=== PATIENT | female | born 1985 | race Caucasian/White ===

== ENCOUNTER 2020-03-28 10:08 | Emergency (ER) | payer OTHER, SELFPAY ==
[2020-03-28 10:15] VITALS: BP 122/82; PULSE 84; RESP 20; TEMP 36.3; O2SAT 99
--- NOTE | 2020-03-28 10:31 | ED.SKABFB ---
HPI - Skin/Abscess/Foreign Bdy General Chief complaint: Skin/Abscess/Foreign Body Stated complaint: rash on arms Time Seen by Provider: 03/28/20 10:31 Source: patient Mode of arrival: ambulatory Limitations: no limitations History of Present Illness HPI narrative: Estephanie Levin is a34 yo female with no PMH who comes to express care with poison randell that started a 3 days ago that is gotten much worse. Paretic with vesicles and scabs on arms beginning on legs. Had a case of poison randell 2 weeks ago also Related Data Allergies Allergy/AdvReac Type Severity Reaction Status Date / Time No Known Allergies Allergy Verified 03/28/20 10:23 Review of Systems Review of Systems: Narrative: CONSTITUTIONAL: Denies fever, chills, sweats. EYES: Denies visual changes, redness, discharge. ENT: Denies rhinorrhea, congestion, sore throat, otalgia. CARDIOVASCULAR: Denies chest pain, palpitations, edema. RESPIRATORY: Denies dyspnea, wheezing, cough GASTROINTESTINAL: Denies abdominal pain, nausea, vomiting, diarrhea. GENITOURINARY: Denies dysuria, hematuria, abnormal discharge SKIN: Pruritic rash to arms and beginning on legs NEUROLOGIC: Denies numbness, or focal weakness. PSYCHIATRIC: Denies anxiety or depression. PMFSH Family History Family History Other Diabetes mellitus Social History Social History Smoking packs per day: 0.5 Smoking cigarettes per day: 10.0 Smoking status: Current every day smoker Alcohol intake: current Gender identity (if verbalized by the patient): Female Comments At time of signature, I agree with nursing past medical, surgical, social and family history. There is no relevant family history pertinent to the presenting complaint. Exam Narrative: Exam Narrative: GENERAL: This is a well-nourished, well-developed patient, in mild distress. HEAD: normocephalic, atraumatic. EYES: Sclera clear/white. Vision is grossly intact. EARS: External ears normal. Hearing grossly intact. NOSE: External nose normal without nasal discharge, nares without redness, no rhinorrhea. THROAT: Mucous membranes moist, NECK: Neck supple, CARDIOVASCULAR: Regular rate and rhythm without murmurs, gallops, or rubs. RESPIRATORY: Clear to auscultation. Breath sounds equal bilaterally. No wheezes, rales, or rhonchi. GASTROINTESTINAL: Abdomen soft, non-tender, SKIN: warm, intact with pruretic papular rash on arms, starting on legs- 2 scabbed places (1 on each forearm) NEURO: awake, alert, and oriented to person, place and time. There were no obvious focal neurologic abnormalities. Steady gait EXTREMITIES: Normal range of motion. BACK: Nontender without deformity Course Course Emergency Course: Started on Medrol Dosepak and Benadryl; discussed cleaning clothes and pools and shoes to get rid of oils; Vital Signs Vital signs: Vital Signs Temperature 97.3 F L 03/28/20 10:15 Pulse Rate 84 03/28/20 10:15 Respiratory Rate 20 03/28/20 10:15 Blood Pressure 122/82 03/28/20 10:15 Pulse Oximetry 99 03/28/20 10:15 Temperature 97.3 F L 03/28/20 10:15 Pulse Rate 84 03/28/20 10:15 Respiratory Rate 03/28/20 10:15 Blood Pressure 122/82 03/28/20 10:15 Pulse Oximetry 99 03/28/20 10:15 MDM - Skin/Abscess/Foreign Bdy Differential Diagnosis Differential diagnosis: Likely urticaria, eczema, impetigo, contact dermatitis and other Discharge Plan Discharge Clinical Impression: Contact dermatitis Qualifiers: Contact dermatitis type: allergic Contact dermatitis trigger: non-food plants Qualified Code(s): L23.7 - Allergic contact dermatitis due to plants, except food Patient Disposition: Home, Self-Care Condition: Stable Instructions: Contact Dermatitis (DC) Prescriptions: New methylprednisolone [Medrol (Sarath)] 4 mg tablets,dose pack See Rx Instructions .ROUTE .COMPLEX Qty: 21 RF
== END 2020-03-28 10:55 | disposition home or self-care (01) ==
PROVIDERS: Emergency Provider Nurse Practitioner
DX: L23.7 Allergic contact dermatitis due to plants, except food (principal); F17.210 Nicotine dependence, cigarettes, uncomplicated
CPT/HCPCS: 99213; G0463

== ENCOUNTER 2021-02-13 10:10 | Emergency (ER) | payer OTHER, SELFPAY ==
--- NOTE | 2021-02-13 10:12 | ED.DENTAL ---
HPI - Dental/Oral General Chief complaint: Dental/Oral Stated complaint: tooth pain Time Seen by Provider: 02/13/21 10:22 Source: patient and RN notes reviewed History of Present Illness HPI Narrative: Patient is a 35-year-old female who presents the urgent care with complaints of acute on chronic dental pain. Patient states that it started last night but she has chronic history of dental pain and swelling. Patient states she is having a hard time finding an oral surgeon due to her insurance. Patient states that she has been taking naproxen and ibuprofen without much improvement. Denies of any fever, chills, nausea, vomiting. No other acute complaints. No acute distress noted. Patient aware of the plan of care. Some parts of this dictation were generated by voice recognition software and may contain typographical and/or grammatical inaccuracies. Related Data Allergies Allergy/AdvReac Type Severity Reaction Status Date / Time No Known Allergies Allergy Verified 03/28/20 10:23 Review of Systems Review of Systems: Narrative: CONSTITUTIONAL: Denies fever, chills, or sweats. EYES: Denies visual changes, redness, or discharge. ENT: Denies rhinorrhea, congestion, sore throat, or otalgia. Reports of right upper and lower dental pain and swelling CARDIOVASCULAR: Denies chest pain, palpitations, or edema. RESPIRATORY: Denies cough or dyspnea. GASTROINTESTINAL: Denies abdominal pain, nausea, vomiting, or diarrhea. GENITOURINARY: Denies dysuria or hematuria. SKIN: Denies rash or itching. MUSCULOSKELETAL: Denies back pain, joint pain, or myalgia. NEUROLOGIC: Denies headache, numbness, or weakness. All other systems reviewed are negative, except as documented in HPI. [facility] Family History Family History Other Diabetes mellitus Social History Social History Smoking packs per day: 0.5 Smoking cigarettes per day: 10.0 Smoking status: Current every day smoker Alcohol intake: current Gender identity (if verbalized by the patient): Female Comments At the time of my signature, I reviewed and agree with the nursing past medical, surgical, social, and family history. There is no relevant family history pertinent to the patient complaint. Exam Narrative: Exam Narrative: GENERAL: This is a well-nourished, well-developed patient, in no apparent distress. HEAD: normocephalic, atraumatic. EYES: PERRL. Sclera clear/white. Vision is grossly intact. EARS: External ears normal NOSE: External nose normal with no obvious nasal discharge, nares without redness, no rhinorrhea. THROAT: Mucous membranes moist MOUTH: Very poor dentition throughout with multiple avulsed dentition at the gumline, mild to moderate erythema/edema to right quadrant. Diffuse caries NECK: Neck supple CARDIOVASCULAR: Regular rate and rhythm without murmurs, gallops, or rubs. RESPIRATORY: Clear to auscultation. Breath sounds equal bilaterally. No wheezes, rales, or rhonchi. SKIN: warm, intact with no suspicious lesions or rash, good texture and turgor. NEURO: awake, alert, and oriented to person, place and time. There were no obvious focal neurologic abnormalities. EXTREMITIES: No clubbing, cyanosis, or edema. Course Vital Signs Vital signs: Vital Signs Temperature 98.7 F 02/13/21 10:18 Pulse Rate 93 02/13/21 10:18 Respiratory Rate 16 02/13/21 10:18 Blood Pressure 144/83 H 02/13/21 10:18 Pulse Oximetry 100 02/13/21 10:18 Temperature 98.7 F 02/13/21 10:18 Pulse Rate 93 02/13/21 10:18 Respiratory Rate 16 02/13/21 10:18 Blood Pressure 144/83 H 02/13/21 10:18 Pulse Oximetry 100 02/13/21 10:18 Reviewed-patient is informed that they may have pre-hypertension or hypertension based on a blood pressure reading in the department. I recommend the patient call the primary care provider listed on their discharge instructions or a
[2021-02-13 10:18] VITALS: BP 144/83; PULSE 93; RESP 16; TEMP 37.1; O2SAT 100
== END 2021-02-13 10:44 | disposition home or self-care (01) ==
PROVIDERS: Emergency Provider Nurse Practitioner Family
DX: K02.9 Dental caries, unspecified (principal); F17.210 Nicotine dependence, cigarettes, uncomplicated
CPT/HCPCS: 99213; G0463

== ENCOUNTER 2021-05-26 12:00 | Emergency (ER) | payer OTHER, SELFPAY ==
[2021-05-26 12:05] VITALS: BP 115/78; PULSE 87; RESP 20; TEMP 37.3; O2SAT 98
--- NOTE | 2021-05-26 12:05 | ED.EYEPROB ---
HPI - Eye Problem General Chief complaint: Eye Problems Stated complaint: Pain and swollen left Eye Time Seen by Provider: 05/26/21 12:05 Source: patient and RN notes reviewed History of Present Illness HPI Narrative: Patient is a 35-year-old female who presents the urgent care with complaints of redness and swelling of the left upper eyelid that started yesterday. Patient states she woke up with crusted eye today. Patient has not put anything in the eye or done anything for her symptoms. No other acute complaints. Denies of any vision change. Denies any known trauma or injury. Patient aware of the plan of care. Some parts of this dictation were generated by voice recognition software and may contain typographical and/or grammatical inaccuracies. Related Data Home Medications Medication Instructions Recorded Confirmed hydrocodone-acetaminophen [Vicodin] 1 tablet PO Q4-6H PRN 05/26/21 05/26/21 Allergies Allergy/AdvReac Type Severity Reaction Status Date / Time No Known Allergies Allergy Verified 05/26/21 12:09 Review of Systems Review of Systems: CONSTITUTIONAL: Denies fever, chills, or sweats. EYES: Denies visual changes. Reports of redness to the left upper eyelid with drainage this morning ENT: Denies rhinorrhea, congestion, sore throat, or otalgia. CARDIOVASCULAR: Denies chest pain, palpitations, or edema. RESPIRATORY: Denies cough or dyspnea. GASTROINTESTINAL: Denies abdominal pain, nausea, vomiting, or diarrhea. GENITOURINARY: Denies dysuria or hematuria. SKIN: Denies rash or itching. MUSCULOSKELETAL: Denies back pain, joint pain, or myalgia. NEUROLOGIC: Denies headache, numbness, or weakness. All other systems reviewed are negative, except as documented in HPI. [facility] Family History Family History Other Diabetes mellitus Social History Social History Smoking packs per day: 0.5 Smoking cigarettes per day: 10.0 Smoking status: Current every day smoker Alcohol intake: current Gender identity (if verbalized by the patient): Female Comments At the time of my signature, I reviewed and agree with the nursing past medical, surgical, social, and family history. There is no relevant family history pertinent to the patient complaint. Exam Narrative: GENERAL: This is a well-nourished, well-developed patient, in no apparent distress. HEAD: normocephalic, atraumatic. EYES: PERRL. Sclera clear/white. Vision is grossly intact. Scant erythema noted to left upper eyelid without any notable drainage or injected conjunctiva EARS: External ears normal NOSE: External nose normal with no obvious nasal discharge, nares without redness, no rhinorrhea. THROAT: Mucous membranes moist NECK: Neck supple CARDIOVASCULAR: Regular rate and rhythm without murmurs, gallops, or rubs. RESPIRATORY: Clear to auscultation. Breath sounds equal bilaterally. No wheezes, rales, or rhonchi. SKIN: warm, intact with no suspicious lesions or rash, good texture and turgor. NEURO: awake, alert, and oriented to person, place and time. There were no obvious focal neurologic abnormalities. EXTREMITIES: No clubbing, cyanosis, or edema. Course Vital Signs Vital signs: Vital Signs Temperature 99.2 F 05/26/21 12:05 Pulse Rate 87 05/26/21 12:05 Respiratory Rate 20 05/26/21 12:05 Blood Pressure 115/78 05/26/21 12:05 Pulse Oximetry 98 05/26/21 12:05 Temperature 99.2 F 05/26/21 12:05 Pulse Rate 87 05/26/21 12:05 Respiratory Rate 20 05/26/21 12:05 Blood Pressure 115/78 05/26/21 12:05 Pulse Oximetry 98 05/26/21 12:05 Reviewed MDM - Eye Problem MDM Narrative Medical decision making narrative: Advised the patient to use an [id number] antihistamine such as Benadryl/Zyrtec/Claritin. May use a warm compress for comfort. If it does not improve over the next 24 to 48 hours, you may start using th
== END 2021-05-26 12:20 | disposition home or self-care (01) ==
PROVIDERS: Emergency Provider Nurse Practitioner Family
DX: H10.12 Acute atopic conjunctivitis, left eye (principal); F17.210 Nicotine dependence, cigarettes, uncomplicated
CPT/HCPCS: 99213; G0463

== ENCOUNTER 2021-08-19 08:25 | Emergency (ER) | payer OTHER, SELFPAY ==
[2021-08-19 08:31] VITALS: BP 110/71; PULSE 86; RESP 18; TEMP 36.7; O2SAT 98
--- NOTE | 2021-08-19 09:00 | ED.SKABFB ---
HPI - Skin/Abscess/Foreign Bdy General Chief complaint: Skin/Abscess/Foreign Body Stated complaint: staff infection inner right thigh Time Seen by Provider: 08/19/21 08:54 Source: patient and RN notes reviewed Mode of arrival: ambulatory Limitations: no limitations History of Present Illness HPI narrative: Patient presents today complaining of possible abscess to the right groin area x4 days. History of multiple abscesses and staph infections in the past. She has tried to squeeze the area with hopes of draining, but has been unsuccessful. She currently rates her pain 6/10 and has tried no medication prior to arrival. No recent antibiotic use. MD complaint: abscess/boil Related Data Allergies Allergy/AdvReac Type Severity Reaction Status Date / Time No Known Allergies Allergy Verified 08/19/21 08:42 Review of Systems Review of Systems: CONSTITUTIONAL: Denies body aches, fever, chills, or sweats. EYES: Denies visual changes, redness, or discharge. ENT: Denies rhinorrhea, congestion, sore throat, or otalgia. CARDIOVASCULAR: Denies chest pain, palpitations, or edema. RESPIRATORY: Denies cough or dyspnea. GASTROINTESTINAL: Denies abdominal pain, nausea, vomiting, or diarrhea. GENITOURINARY: Denies dysuria or hematuria. SKIN: Denies rash, itching. + Abscess to right groin MUSCULOSKELETAL: Denies back pain, joint pain, or myalgia. NEUROLOGIC: Denies headache, numbness, tingling, or weakness. PSYCH: Denies depression or anxiety. PMFSH Family History Family History Other Diabetes mellitus Social History Social History Smoking packs per day: 0.5 Smoking cigarettes per day: 10.0 Smoking status: Current every day smoker Alcohol intake: current Gender identity (if verbalized by the patient): Female Comments At time of signature, I have reviewed and agree with nursing past medical, surgical, social and family history unless otherwise noted. Please see nursing chart for further information. There is no relevant family history pertinent to the presenting complaint Exam Narrative: GENERAL: Well-appearing, well-nourished, and in no acute distress. HEAD: Normocephalic, atraumatic. EYES: EOMI. No redness or drainage. Conjunctivae normal. ENT: Mucous membranes pink and moist. NECK: Normal AROM. CHEST: No respiratory distress. EXTREMITIES: Normal range of motion. No edema. SKIN: Warm, dry, no rash. Capillary refill normal. Normal skin turgor. 1 x 1.5 cm area of erythema and mild induration to the right groin that is tender to palpation. No fluctuance. This area is not ready to be lanced. NEURO: No focal deficits. Alert and oriented x3. Gait steady. PSYCH: Normal affect. No signs of depression or anxiety. Course Vital Signs Vital signs: Vital Signs Temperature 98.1 F 08/19/21 08:31 Pulse Rate 86 08/19/21 08:31 Respiratory Rate 18 08/19/21 08:31 Blood Pressure 110/71 08/19/21 08:31 Pulse Oximetry 98 08/19/21 08:31 Temperature 98.1 F 08/19/21 08:31 Pulse Rate 86 08/19/21 08:31 Respiratory Rate 18 08/19/21 08:31 Blood Pressure 110/71 08/19/21 08:31 Pulse Oximetry 98 08/19/21 08:31 Reviewed MDM - Skin/Abscess/Foreign Bdy Differential Diagnosis Differential diagnosis: Likely abscess of skin or subcutaneous tissue, cellulitis and other (Folliculitis) Critical Care Time Critical Care Time Critical Care Time: No Discharge Plan Discharge Clinical Impression: Cellulitis Qualifiers: Site of cellulitis: trunk Site of cellulitis of trunk: groin Qualified Code(s): L03.314 - Cellulitis of groin Patient Disposition: Home, Self-Care Condition: Stable Instructions: Antibiotic Form, Cellulitis (ED) Additional Instructions: Please take the Bactrim as prescribed until gone. Do not wash with alcohol, peroxide. Do not apply antibiotic ointment. I
== END 2021-08-19 09:08 | disposition home or self-care (01) ==
PROVIDERS: Emergency Provider Nurse Practitioner
DX: L03.314 Cellulitis of groin (principal); F17.210 Nicotine dependence, cigarettes, uncomplicated; Z86.19 Personal history of other infectious and parasitic diseases
CPT/HCPCS: 99213; G0463

== ENCOUNTER 2021-10-12 08:17 | Emergency (ER) | payer OTHER, SELFPAY ==
[2021-10-12 08:22] VITALS: BP 137/83; PULSE 85; RESP 16; TEMP 36.8; O2SAT 100
--- NOTE | 2021-10-12 08:23 | ED.DENTAL ---
HPI - Dental/Oral General Chief complaint: Upper Respiratory Infection Stated complaint: Toothache Time Seen by Provider: 10/12/21 08:23 Source: patient and RN notes reviewed History of Present Illness HPI Narrative: Patient is a 36-year-old female presents the urgent care with complaints of a upper right dental pain. Patient states that it started last night and she noticed some swelling this morning. Patient has had 20+ years of dental issues and has been unable to find a dentist. Patient denies any fever, chills, nausea or vomiting. Patient has been taking Tylenol for the pain. No other acute complaints. No acute distress noted. Patient read the plan of care. Some parts of this dictation were generated by voice recognition software and may contain typographical and/or grammatical inaccuracies. Related Data Allergies Allergy/AdvReac Type Severity Reaction Status Date / Time No Known Allergies Allergy Verified 10/12/21 08:26 Review of Systems Review of Systems: CONSTITUTIONAL: Denies fever, chills, or sweats. EYES: Denies visual changes, redness, or discharge. ENT: Denies rhinorrhea, congestion, sore throat, or otalgia. Reports of upper right dental pain and swelling CARDIOVASCULAR: Denies chest pain, palpitations, or edema. RESPIRATORY: Denies cough or dyspnea. GASTROINTESTINAL: Denies abdominal pain, nausea, vomiting, or diarrhea. GENITOURINARY: Denies dysuria or hematuria. SKIN: Denies rash or itching. MUSCULOSKELETAL: Denies back pain, joint pain, or myalgia. NEUROLOGIC: Denies headache, numbness, or weakness. All other systems reviewed are negative, except as documented in HPI. PMFSH Family History Family History Other Diabetes mellitus Social History Social History Smoking packs per day: 0.5 Smoking cigarettes per day: 10.0 Smoking status: Current every day smoker Alcohol intake: current Gender identity (if verbalized by the patient): Female Comments At the time of my signature, I reviewed and agree with the nursing past medical, surgical, social, and family history. There is no relevant family history pertinent to the patient complaint. Exam Narrative: GENERAL: This is a well-nourished, well-developed patient, in no apparent distress. HEAD: normocephalic, atraumatic. EYES: PERRL. Sclera clear/white. Vision is grossly intact. EARS: External ears normal NOSE: External nose normal with no obvious nasal discharge, nares without redness, no rhinorrhea. THROAT: Mucous membranes moist, posterior pharynx clear. NECK: Neck supple DENTAL: Poor dentition throughout with decayed avulsed dentition. Abscess to the upper right quadrant more so located to the first and second premolar with moderate erythema CARDIOVASCULAR: Regular rate and rhythm without murmurs, gallops, or rubs. RESPIRATORY: Clear to auscultation. Breath sounds equal bilaterally. No wheezes, rales, or rhonchi. SKIN: warm, intact with no suspicious lesions or rash, good texture and turgor. NEURO: awake, alert, and oriented to person, place and time. There were no obvious focal neurologic abnormalities. EXTREMITIES: No clubbing, cyanosis, or edema. Course Course Level of Care: Express Care Visit Vital Signs Vital signs: Vital Signs Temperature 98.3 F 10/12/21 08:22 Pulse Rate 85 10/12/21 08:22 Respiratory Rate 16 10/12/21 08:22 Blood Pressure 137/83 10/12/21 08:22 Pulse Oximetry 100 10/12/21 08:22 Temperature 98.3 F 10/12/21 08:22 Pulse Rate 85 10/12/21 08:22 Respiratory Rate 16 10/12/21 08:22 Blood Pressure 137/83 10/12/21 08:22 Pulse Oximetry 100 10/12/21 08:22 Review MDM - Dental/Oral MDM Narrative Medical decision making narrative: Advise the patient to complete the oral antibiotic regimen as prescribed. Be sure to eat and drink with the medication. Use [id number] prevention m
== END 2021-10-12 08:39 | disposition home or self-care (01) ==
PROVIDERS: Emergency Provider Nurse Practitioner Family
DX: K04.7 Periapical abscess without sinus (principal); F17.210 Nicotine dependence, cigarettes, uncomplicated
CPT/HCPCS: 99213; G0463

== ENCOUNTER 2022-02-16 09:48 | Emergency (ER) | payer OTHER, SELFPAY ==
--- NOTE | 2022-02-16 09:58 | ED.URI ---
HPI - URI/Sore Throat General Chief Complaint: Upper Respiratory Infection Stated Complaint: Sore Throat Time Seen by Provider: 02/16/22 11:08 Source: patient and RN notes reviewed Mode of arrival: ambulatory Limitations: no limitations History of Present Illness HPI Narrative: 36-year-old female presents with concern for sore throat. She also reports productive cough, nasal congestion. Reports symptoms started 3 days ago. She reports chills and sweats, denies fever or body aches. She denies any [id number] intervention. She reports she was around a friend with cold symptoms more than 1 week ago. MD elicited complaint: cough, sore throat and nasal congestion Related Data Allergies Allergy/AdvReac Type Severity Reaction Status Date / Time No Known Allergies Allergy Verified 02/16/22 10:42 Review of Systems Review of Systems: CONSTITUTIONAL: Reports malaise, chills, sweats. Denies r fever. EYES: Denies visual changes, redness, or discharge. ENT: Reports rhinorrhea, congestion, and sore throat. Denies sinus pain, otalgia CARDIOVASCULAR: Denies chest pain, palpitations, or edema. RESPIRATORY: Reports cough. Denies dyspnea. GASTROINTESTINAL: Denies abdominal pain, nausea, vomiting, diarrhea SKIN: Denies rash or itching. MUSCULOSKELETAL: Denies myalgia. NEUROLOGIC: Denies headache. All systems reviewed & are unremarkable except as noted in HPI and below PMFSH Family History Family History Other Diabetes mellitus Social History Social History Smoking packs per day: 0.5 Smoking cigarettes per day: 10.0 Smoking status: Current every day smoker Alcohol intake: current Gender identity (if verbalized by the patient): Female Comments At time of signature, agree with nursing past medical, surgical, social and family history. There is no relevant family history pertinent to the presenting complaint Exam Narrative: GENERAL: Nontoxic-appearing and in no acute distress. HEAD: Normocephalic EYES: PERRLA, conjunctivae clear ENT: Nares clear, clear discharge. Mucous membranes moist. TM pearly millard with sharp light reflex bilaterally; no tragal tenderness. Oropharynx not erythematous without lesions. Tonsils not enlarged and without exudate, no drooling, no hoarseness, no trismus, uvula midline. NECK: Supple. No lymphadenopathy CHEST: Clear to auscultation, breath sounds equal. No wheezing, rhonchi, rales, or stridor. No respiratory distress, speaks in full sentences. HEART: Regular rate and rhythm. No murmur heard. SKIN: Warm, dry, no rash. NEURO: Alert and oriented x3. PSYCH: Normal mood and affect Course Course Emergency Course: Patient is aware of diagnosis, understands and agrees to treatment plan. Anticipatory guidance given. Patient agrees to follow-up as directed and is aware of reasons to seek care at the emergency department. Portions of this record may have been created with voice recognition software Level of Care: Express Care Visit Vital Signs Vital signs: Vital Signs Temperature 97.7 F 02/16/22 10:06 Pulse Rate 85 02/16/22 10:06 Respiratory Rate 16 02/16/22 10:06 Blood Pressure 118/77 02/16/22 10:06 Pulse Oximetry 98 02/16/22 10:06 Temperature 97.7 F 02/16/22 10:06 Pulse Rate 85 02/16/22 10:06 Respiratory Rate 16 02/16/22 10:06 Blood Pressure 118/77 02/16/22 10:06 Pulse Oximetry 98 02/16/22 10:06 Reviewed. MDM - URI/Sore Throat MDM Narrative Medical decision making narrative: Differential diagnosis considered: Aleman virus, strep pharyngitis, allergic rhinitis, upper respiratory tract infection, sinusitis, rhinosinusitis, nasopharyngitis. viral pharyngitis, otitis media, otitis externa, pneumonia, bronchitis, viral cough syndrome, viral syndrome, and influenza. Exam findings show no acute concerns or changes; patient is non-toxic appeari
[2022-02-16 10:06] VITALS: BP 118/77; PULSE 85; RESP 16; TEMP 36.5; O2SAT 98
== END 2022-02-16 11:25 | disposition home or self-care (01) ==
PROVIDERS: Emergency Provider Nurse Practitioner
DX: J06.9 Acute upper respiratory infection, unspecified (principal); F17.210 Nicotine dependence, cigarettes, uncomplicated
CPT/HCPCS: 87081; 87880; 99213; G0463

== ENCOUNTER 2022-03-09 11:29 | Emergency (ER) | payer OTHER, SELFPAY ==
[2022-03-09 11:34] VITALS: BP 121/71; PULSE 86; RESP 14; TEMP 36.7; O2SAT 99
--- NOTE | 2022-03-09 11:44 | ED.URI ---
HPI - URI/Sore Throat General Chief Complaint: Upper Respiratory Infection Stated Complaint: chills body aches cough Time Seen by Provider: 03/09/22 11:40 Source: patient Mode of arrival: ambulatory Limitations: no limitations History of Present Illness HPI Narrative: Ms. Cummings is a 36-year-old female patient presenting to the clinic today with complaints of chills, body aches, productive cough, and shaking. She reports that she has felt feverish. Symptoms began last night. No known exposure to anybody with COVID, flu, or strep. Does not currently have a temperature in the clinic today. Reports that the cough became productive when she arrived to the clinic. She is a current smoker. MD elicited complaint: sore throat and nasal congestion Related Data Home Medications Medication Instructions Recorded Confirmed No Home Medications 03/09/22 03/09/22 Allergies Allergy/AdvReac Type Severity Reaction Status Date / Time No Known Allergies Allergy Verified 03/09/22 11:50 Review of Systems Review of Systems: Pertinent positives per HPI. Patient denies any rash, headache, visual changes, dizziness, sore throat, shortness of breath, chest pain, palpitations, nausea, vomiting, diarrhea, constipation, abdominal pain, or any urinary issues. PMFSH Family History Family History Other Diabetes mellitus Social History Social History Smoking packs per day: 0.5 Smoking cigarettes per day: 10.0 Smoking status: Current every day smoker Alcohol intake: current Gender identity (if verbalized by the patient): Female Comments At the time of my signature, I reviewed and agree with the nursing past medical, surgical, social, and family history. There is no relevant family history pertinent to the patient complaint. Exam Narrative: General: Well-developed, well nourished, in no apparent distress Head: Normocephalic, atraumatic Eyes: Pupils equally round and reactive to light bilaterally, EOM intact, sclera and conjunctive clear, no discharge, lids normal Ears: TMs intact and clear, ear canals ceruminous, no drainage, grossly hearing normal. Nose: Nares patent, clear nasal discharge, mild inflammation, no sinus tenderness. Mouth: Oral pharynx without lesions or masses, good dentition, MMM. Neck: Supple, trachea midline, no enlargement of anterior or posterior cervical nodes, no thyroid masses or goiter palpable. Cardio: Regular rate and rhythm, s1 and s2 normal, no murmur appreciated. Resp: Clear to auscultation bilaterally, no rhonchi, rales, wheezing or rubs Course Course Emergency Course: Portions of this record may have been created with voice recognition software. Level of Care: Express Care Visit Vital Signs Vital signs: Vital Signs Temperature 36.7 C 03/09/22 11:34 Pulse Rate 86 03/09/22 11:34 Respiratory Rate 14 03/09/22 11:34 Blood Pressure 121/71 03/09/22 11:34 Pulse Oximetry 99 03/09/22 11:34 Oxygen Delivery Room Air 03/09/22 11:34 Temperature 36.7 C 03/09/22 11:34 Pulse Rate 86 03/09/22 11:34 Respiratory Rate 14 03/09/22 11:34 Blood Pressure 121/71 03/09/22 11:34 Pulse Oximetry 99 03/09/22 11:34 Oxygen Delivery Room Air 03/09/22 11:34 Vital signs reviewed MDM - URI/Sore Throat MDM Narrative Medical decision making narrative: At the time of visit patient was resting comfortably on the exam table. COVID and influenza testing was completed and were both negative. I suspect the patient has an upper respiratory infection and discussed supportive care. Patient voiced understanding of instructions and agrees to treatment plan. Differential Diagnosis Differential diagnosis: Likely upper respiratory infection, sinusitis, viral infection, bronchitis, influenza, pharyngitis and other (COVID) Discharge Plan Discharge Clinic
[2022-03-09 11:51] VITALS: BP 121/71; PULSE 86; RESP 14; TEMP 36.7; O2SAT 99
== END 2022-03-09 12:07 | disposition home or self-care (01) ==
PROVIDERS: Emergency Provider Nurse Practitioner Family
DX: J06.9 Acute upper respiratory infection, unspecified (principal); B34.9 Viral infection, unspecified; Z20.822 Contact with and (suspected) exposure to COVID-19; F17.210 Nicotine dependence, cigarettes, uncomplicated
CPT/HCPCS: 87426; 87804; 99213; C9803; G0463

== ENCOUNTER 2022-06-15 09:33 | Emergency (ER) | payer OTHER, SELFPAY ==
[2022-06-15 09:40] VITALS: BP 119/73; PULSE 87; RESP 20; TEMP 37.2; O2SAT 99
--- NOTE | 2022-06-15 09:45 | ED.URI ---
HPI - URI/Sore Throat General Chief Complaint: Upper Respiratory Infection Stated Complaint: Chest Congestion/Cough Time Seen by Provider: 06/15/22 09:46 Source: patient and RN notes reviewed Mode of arrival: ambulatory Limitations: no limitations History of Present Illness HPI Narrative: 36-year-old female presents with concern for 1 week history of nasal congestion, rhinorrhea, cough. She reports lateral muscle pain with coughing. She reports she has been taking decongestants, Benadryl without relief. She reports she tried an whka-ogj-ghghoil cough medicine 1 time without relief. She reports a history of smoking. She denies shortness of breath, fever, body aches, chills, sweats. She denies known sick contacts. Reports history of allergies. MD elicited complaint: cough Related Data Allergies Allergy/AdvReac Type Severity Reaction Status Date / Time No Known Allergies Allergy Verified 06/15/22 09:43 Review of Systems Review of Systems: CONSTITUTIONAL: Denies malaise, chills, sweats, or fever. EYES: Denies visual changes, redness, or discharge. ENT: Reports rhinorrhea, congestion. Denies sinus pain, otalgia and sore throat. CARDIOVASCULAR: Denies chest pain, palpitations, or edema. RESPIRATORY: Reports persistent cough. Denies dyspnea. GASTROINTESTINAL: Denies abdominal pain, nausea, vomiting, diarrhea SKIN: Denies rash or itching. MUSCULOSKELETAL: Denies myalgia. NEUROLOGIC: Denies headache. All systems reviewed & are unremarkable except as noted in HPI and below PMFSH Family History Family History Other Diabetes mellitus Social History Social History Smoking packs per day: 0.5 Smoking cigarettes per day: 10.0 Smoking status: Current every day smoker Alcohol intake: current Gender identity (if verbalized by the patient): Female Comments At time of signature, agree with nursing past medical, surgical, social and family history. There is no relevant family history pertinent to the presenting complaint Exam Narrative: GENERAL: Nontoxic appearing and in no acute distress. HEAD: Normocephalic EYES: PERRLA, conjunctivae clear ENT: Nares clear, turbinates edematous and erythematous, yellow discharge. Mucous membranes moist. TM not visible due to excess cerumen bilaterally; no tragal tenderness. Oropharynx not erythematous without lesions. Tonsils not enlarged and without exudate, no drooling, no hoarseness, no trismus, uvula midline. NECK: Supple. No lymphadenopathy CHEST: Clear to auscultation, breath sounds equal, very scattered mild wheeze, persistent cough noted. No rhonchi, rales, or stridor. No respiratory distress, speaks in full sentences. HEART: Regular rate and rhythm. No murmur heard. SKIN: Warm, dry, no rash. NEURO: Alert and oriented x3. PSYCH: Normal mood and affect Course Course Emergency Course: Patient is aware of diagnosis, understands and agrees to treatment plan. Anticipatory guidance given. Patient agrees to follow-up as directed and is aware of reasons to seek care at the emergency department. Portions of this record may have been created with voice recognition software Level of Care: Express Care Visit Vital Signs Vital signs: Vital Signs Temperature 99 F 06/15/22 09:40 Pulse Rate 87 06/15/22 09:40 Respiratory Rate 20 06/15/22 09:40 Blood Pressure 119/73 06/15/22 09:40 Pulse Oximetry 99 06/15/22 09:40 Oxygen Delivery Room Air 06/15/22 09:40 Temperature 99 F 06/15/22 09:40 Pulse Rate 87 06/15/22 09:40 Respiratory Rate 20 06/15/22 09:40 Blood Pressure 119/73 06/15/22 09:40 Pulse Oximetry 99 06/15/22 09:40 Oxygen Delivery Room Air 06/15/22 09:40 Reviewed. MDM - URI/Sore Throat MDM Narrative Medical decision making narrative: Differential diagnosis considered: Aleman virus, strep pharyngitis, allergic rhiniti
== END 2022-06-15 09:57 | disposition home or self-care (01) ==
PROVIDERS: Emergency Provider Nurse Practitioner
DX: J32.9 Chronic sinusitis, unspecified (principal); J40 Bronchitis, not specified as acute or chronic; F17.210 Nicotine dependence, cigarettes, uncomplicated
CPT/HCPCS: 99213; G0463

== ENCOUNTER 2022-07-29 11:33 | Emergency (ER) | payer OTHER, SELFPAY ==
--- NOTE | ~2022-07-29 | XR_ITS ---
EXAMINATION: XR chest 2V DATE: 07/29/2022 12:08 INDICATION: Wheezing. Crackles. Fever. TECHNIQUE: Frontal and lateral views of the chest were obtained. COMPARISON: Chest 2 views 08/14/2018 FINDINGS: The chest demonstrates clear lungs without pneumonia, pleural effusion, or pneumothorax. Th e heart size is normal. IMPRESSION: 1. No acute cardiopulmonary disease. Reviewed, dictated and finalized at location A.
[2022-07-29 11:38] VITALS: BP 106/56; PULSE 100; RESP 20; TEMP 38.3; O2SAT 99
--- NOTE | 2022-07-29 11:50 | ED.URI ---
HPI - URI/Sore Throat General Chief Complaint: Upper Respiratory Infection Stated Complaint: cough aches chills weak Time Seen by Provider: 07/29/22 11:50 Source: patient, RN notes reviewed and old records reviewed Mode of arrival: ambulatory Limitations: no limitations History of Present Illness HPI Narrative: There is 37-year-old female who presents to [facility] Care with complaints of body aches, chills, cough, headache, and fevers reported since yesterday.. Patient reports that she has been taking DayQuil and Vicks cold medication with no relief in her symptoms. Patient reports fevers highest to 100.4F at e Patient is daily tobacco user of 1/2 ppd for 20 years. Patient has had COVID vaccinations but no flu shot yet this year but did take last year. MD elicited complaint: fever, cough and other (body aches, headaches) Pertinent past history: other (tobacco abuse) Onset (ago): day(s) (1) Pain scale (0-10): 7 Able to tolerate fluids by mouth: Yes Treatments prior to arrival: cold medicine and other (DayQuil) Related Data Allergies Allergy/AdvReac Type Severity Reaction Status Date / Time No Known Allergies Allergy Verified 07/29/22 11:50 Review of Systems Review of Systems: CONSTITUTIONAL: Reports malaise, chills, sweats, or fever. EYES: Denies visual changes, redness, or discharge. ENT: Reports rhinorrhea, congestion, no sinus pain, otalgia and no sore throat. CARDIOVASCULAR: Denies chest pain, palpitations, or edema. RESPIRATORY: Reports cough.? Denies dyspnea. GASTROINTESTINAL: Denies abdominal pain, nausea, vomiting, diarrhea SKIN: Denies rash or itching. MUSCULOSKELETAL: Reports myalgia. NEUROLOGIC: Reports headache. All systems reviewed & are unremarkable except as noted in HPI and below PMFSH Past Medical History Medical History (Updated 08/01/22 @ 07:48 by Gayle Sinclair NP) Fracture of right elbow History of dental problems Surgical History Surgical History (Updated 08/01/22 @ 07:49 by Gayle Sinclair NP) H/O tubal ligation Family History Family History Other Diabetes mellitus Social History Social History Smoking packs per day: 0.5 Smoking cigarettes per day: 10.0 Smoking status: Current every day smoker Alcohol intake: current Gender identity (if verbalized by the patient): Female Comments At time of signature, agree with nursing past medical, surgical, social and family history. There is no relevant family history pertinent to the presenting complaint Exam Narrative: GENERAL: Well-appearing, well-nourished, and in no acute distress. HEAD: Normocephalic EYES: PERRLA, conjunctivae clear ENT: Nares clear, turbinates edematous and erythematous, clear discharge. Mucous membranes moist. TM pearly millard with dull light reflex bilaterally; no tragal tenderness. Oropharynx erythematous without lesions. Tonsils not enlarged and without exudate, no drooling, no hoarseness, no trismus, uvula midline. NECK: Supple. No lymphadenopathy CHEST: Coarse breath sounds occasional wheeze, breath sounds equal. Occasional wheezing,no rhonchi, rales, or stridor. No respiratory distress, speaks in full sentences. Harsh cough SaO2 99% on room air HEART: Regular rate and rhythm. No murmur heard. SKIN: Warm, dry, no rash. NEURO: Alert and oriented x3. PSYCH: Normal mood and affect Course Course Emergency Course: Patient is aware of diagnosis, understands and agrees to treatment plan.? Anticipatory guidance given.? Patient agrees to follow-up as directed and is aware of reasons to seek care at the emergency department. Portions of this record may have been created with voice recognition software Level of Care: Express Care Visit Vital Signs Vital signs: Vital Signs Temperature 38.3 C H 07/29/22 11:38 Pulse Rate 100 07/29/22 11:38 Respirator
== END 2022-07-29 12:30 | disposition home or self-care (01) ==
PROVIDERS: Emergency Provider Registered Nurse
DX: J10.1 Influenza due to other identified influenza virus with other respiratory manifestations (principal); R05.9 Cough, unspecified; F17.210 Nicotine dependence, cigarettes, uncomplicated
CPT/HCPCS: 71046; 87804; 99213; G0463

== ENCOUNTER 2022-08-08 08:39 | Emergency (ER) | payer OTHER, SELFPAY ==
--- NOTE | ~2022-08-08 | XR_ITS ---
EXAMINATION: XR chest 2V DATE: 08/08/2022 08:59 INDICATION: Cough and congestion. TECHNIQUE: Frontal and lateral views of the chest were obtained. COMPARISON: Chest 2 views 07/29/2022 FINDINGS: The chest demonstrates clear lungs without pneumonia, pleural effusion, or pneumothorax. Th e heart size is normal. IMPRESSION: 1. No acute cardiopulmonary disease. Reviewed, dictated and finalized at location A. F OPERATOR
[2022-08-08 08:44] VITALS: BP 123/76; PULSE 108; RESP 16; TEMP 36.7; O2SAT 99
--- NOTE | 2022-08-08 08:57 | ED.URI ---
HPI - URI/Sore Throat General Chief Complaint: Upper Respiratory Infection Stated Complaint: Had the flu/has cough and congestion Time Seen by Provider: 08/08/22 09:10 Source: patient and RN notes reviewed Mode of arrival: ambulatory Limitations: no limitations History of Present Illness HPI Narrative: 37-year-old female presents with concern for ongoing persistent productive cough after and influenza diagnosis approximately 2 weeks ago. She reports her cough has becoming progressively worse and persistent despite taking [id number] medications. She feels episodes of shortness of breath. She reports she feels like she has pneumonia. She denies current fever, body aches, chills, sweats MD elicited complaint: cough Related Data Allergies Allergy/AdvReac Type Severity Reaction Status Date / Time No Known Allergies Allergy Verified 07/29/22 11:50 Review of Systems Review of Systems: CONSTITUTIONAL: Reports malaise, chills, sweats, or fever. EYES: Denies visual changes, redness, or discharge. ENT: Reports rhinorrhea, congestion, sinus pain. Denies otalgia and sore throat. CARDIOVASCULAR: Denies chest pain, palpitations, or edema. RESPIRATORY: Reports persistent productive cough, episodes of dyspnea. GASTROINTESTINAL: Denies abdominal pain, nausea, vomiting, diarrhea SKIN: Denies rash or itching. MUSCULOSKELETAL: Denies myalgia. NEUROLOGIC: Denies headache. All systems reviewed & are unremarkable except as noted in HPI and below PMFSH Past Medical History Medical History (Updated 08/08/22 @ 09:20 by Katelin Fernandez NP) Fracture of right elbow History of dental problems Surgical History Surgical History (Updated 08/01/22 @ 07:49 by Gayle Sinclair NP) H/O tubal ligation Family History Family History Other Diabetes mellitus Social History Social History Smoking packs per day: 0.5 Smoking cigarettes per day: 10.0 Smoking status: Current every day smoker Alcohol intake: current Gender identity (if verbalized by the patient): Female Comments At time of signature, agree with nursing past medical, surgical, social and family history. There is no relevant family history pertinent to the presenting complaint Exam Narrative: GENERAL: Nontoxic-appearing and in no acute distress. HEAD: Normocephalic EYES: PERRLA, conjunctivae clear ENT: Nares clear, clear discharge. Mucous membranes moist. TM pearly millard with dull light reflex bilaterally; no tragal tenderness. Oropharynx not erythematous without lesions. Tonsils not enlarged and without exudate, no drooling, no hoarseness, no trismus, uvula midline. NECK: Supple. No lymphadenopathy CHEST: Clear to auscultation, breath sounds equal. No wheezing, rhonchi, rales, or stridor. No respiratory distress, speaks in full sentences. Persistent cough HEART: Regular rate and rhythm. No murmur heard. SKIN: Warm, dry, no rash. NEURO: Alert and oriented x3. PSYCH: Normal mood and affect Course Course Emergency Course: Patient is aware of diagnosis, understands and agrees to treatment plan. Anticipatory guidance given. Patient agrees to follow-up as directed and is aware of reasons to seek care at the emergency department. Portions of this record may have been created with voice recognition software Level of Care: Express Care Visit Vital Signs Vital signs: Vital Signs Temperature 98.1 F 08/08/22 08:44 Pulse Rate 108 H 08/08/22 08:44 Respiratory Rate 16 08/08/22 08:44 Blood Pressure 123/76 08/08/22 08:44 Pulse Oximetry 99 08/08/22 08:44 Oxygen Delivery Room Air 08/08/22 08:44 Temperature 98.1 F 08/08/22 08:44 Pulse Rate 108 H 08/08/22 08:44 Respiratory Rate 16 08/08/22 08:44 Blood Pressure 123/76 08/08/22 08:44 Pulse Oximetry 99 08/08/22 08:44 Oxygen Delivery Room Air 08/08/22 08:44 Reviewed.
== END 2022-08-08 09:32 | disposition home or self-care (01) ==
PROVIDERS: Emergency Provider Nurse Practitioner
DX: J32.9 Chronic sinusitis, unspecified (principal); J40 Bronchitis, not specified as acute or chronic; F17.219 Nicotine dependence, cigarettes, with unspecified nicotine-induced disorders
CPT/HCPCS: 71046; 99213; G0463

== ENCOUNTER 2023-04-29 08:40 | Emergency (ER) | payer OTHER, SELFPAY ==
[2023-04-29 08:46] VITALS: BP 107/77; PULSE 76; RESP 18; TEMP 36.7; O2SAT 100
[2023-04-29 08:53] VITALS: BP 107/77; PULSE 76; RESP 18; TEMP 36.7; O2SAT 100
--- NOTE | 2023-04-29 08:56 | ED.EAR ---
HPI - Ear Problem General Chief complaint: Ear Stated complaint: Right Ear Ache History of Present Illness HPI Narrative: patient presents with right ear pain patient reports a history of ear wax build up and used a yolanda pin and peroxide to ear. no drainage from ear no hearling loss Related Data Allergies Allergy/AdvReac Type Severity Reaction Status Date / Time No Known Allergies Allergy Verified 04/29/23 08:47 Review of Systems Review of Systems: CONSTITUTIONAL: Denies fever, chills, or sweats. EYES: Denies visual changes, redness, or discharge. ENT: Denies rhinorrhea, congestion, sore throat, or otalgia. CARDIOVASCULAR: Denies chest pain, palpitations, or edema. RESPIRATORY: Denies cough or dyspnea. GASTROINTESTINAL: Denies abdominal pain, nausea, vomiting, or diarrhea. GENITOURINARY: Denies dysuria or hematuria. SKIN: Denies rash or itching. MUSCULOSKELETAL: Denies back pain, joint pain, or myalgia. NEUROLOGIC: Denies headache, numbness, or weakness. PSYCHIATRIC: Denies anxiety or depression. [facility] Past Medical History Medical History (Updated 04/29/23 @ 08:59 by JUDIE Childress) Fracture of right elbow History of dental problems Surgical History Surgical History (Updated 08/01/22 @ 07:49 by Gayle Sinclair NP) H/O tubal ligation Family History Family History Other Diabetes mellitus Social History Social History Smoking packs per day: 0.5 Smoking cigarettes per day: 10.0 Smoking status: Current every day smoker Alcohol intake: current Gender identity (if verbalized by the patient): Female Comments At time of signature, agree with nursing past medical, surgical, social and family history. There is no relevant family history pertinent to the presenting complaint Exam Narrative: GENERAL: Well-appearing, well-nourished, and in no acute distress. HEAD: Normocephalic, atraumatic. EYES: PERRLA and EOMI. ENT: Nares clear, no rhinorrhea or epistaxis. Mucous membranes moist. Right ear canal moderate erythema and mild cerumen to canal. TM intact left TM intact mild cerumen in canal NECK: Supple. CHEST: Clear to auscultation. No respiratory distress. HEART: Regular rate and rhythm. No murmur heard. Normal peripheral pulses. ABDOMEN: Soft, nontender, nondistended, normal active bowel sounds. EXTREMITIES: Normal range of motion. No edema. SKIN: Warm, dry, no rash. NEURO: No focal deficits. Alert and oriented x3. Audrey Coma Scale Eye Opening: Spontaneous 4 Audrey Coma Scale Motor: Obeys Commands 6 Audrey Coma Scale Verbal: Oriented 5 Lincoln Coma Scale Total 15 Course Course Level of Care: Express Care Visit Vital Signs Vital signs: Vital Signs Temperature 36.7 C 04/29/23 08:46 Pulse Rate 76 04/29/23 08:46 Respiratory Rate 18 04/29/23 08:46 Blood Pressure 107/77 04/29/23 08:46 Pulse Oximetry 100 04/29/23 08:46 Oxygen Delivery Room Air 04/29/23 08:46 Temperature 36.7 C 04/29/23 08:53 Pulse Rate 76 04/29/23 08:53 Respiratory Rate 18 04/29/23 08:53 Blood Pressure 107/77 04/29/23 08:53 Pulse Oximetry 100 04/29/23 08:53 Oxygen Delivery Room Air 04/29/23 08:53 Medical Decision Making Vital Signs Vital Signs: Vital Signs Temperature 36.7 C 04/29/23 08:46 Pulse Rate 76 04/29/23 08:46 Respiratory Rate 18 04/29/23 08:46 Blood Pressure 107/77 04/29/23 08:46 Pulse Oximetry 100 04/29/23 08:46 Oxygen Delivery Room Air 04/29/23 08:46 Temperature 36.7 C 04/29/23 08:53 Pulse Rate 76 04/29/23 08:53 Respiratory Rate 18 04/29/23 08:53 Blood Pressure 107/77 04/29/23 08:53 Pulse Oximetry 100 04/29/23 08:53 Oxygen Delivery Room Air 04/29/23 08:53 Discharge Plan Discharge Clinical Impression: Otitis media, Cerumen in auditory canal on examination Patient Di
== END 2023-04-29 09:07 | disposition home or self-care (01) ==
PROVIDERS: Emergency Provider Nurse Practitioner Family
DX: H66.91 Otitis media, unspecified, right ear (principal); F17.210 Nicotine dependence, cigarettes, uncomplicated; H93.8X3 Other specified disorders of ear, bilateral
CPT/HCPCS: 99213; G0463

== ENCOUNTER 2024-02-04 08:27 | Emergency (ER) | payer SELFPAY ==
[2024-02-04 08:34] VITALS: BP 117/73; PULSE 68; RESP 20; TEMP 36.6; O2SAT 100
--- NOTE | 2024-02-04 09:10 | ED.EAR ---
HPI - Ear Problem General Chief complaint: Ear Stated complaint: Ear Wax Build up Time Seen by Provider: 02/04/24 09:00 Source: patient, RN notes reviewed and old records reviewed Mode of arrival: ambulatory Limitations: no limitations History of Present Illness HPI Narrative: 38 year old female presents to [facility] care with complaints of being unable to hear from either ear today. She reports that she thinks that her ears are clogged with wax, has history of excessive ear wax production. Patient reports no pain to her ears, denies any sinus congestion or any sore throat, no fevers or chills or any body aches.Patient reports that she called off work today because she was unable to hear and requests work note. MD Complaint: decreased hearing and other (feels like ears are clogged) Location: bilateral Severity: moderate Discharge from ear: Reports no Treatment prior to arrival: none Related Data Allergies Allergy/AdvReac Type Severity Reaction Status Date / Time No Known Allergies Allergy Verified 04/29/23 08:47 Review of Systems Review of Systems: CONSTITUTIONAL: Denies malaise, chills, sweats, or fever. EYES: Denies visual changes, redness, or discharge. ENT: Reports no rhinorrhea, congestion, sinus pain, otalgia and no sore throat, reports that ears feel clogged and can't hear CARDIOVASCULAR: Denies chest pain, palpitations, or edema. RESPIRATORY: Reports cough.? Denies dyspnea. GASTROINTESTINAL: Denies abdominal pain, nausea, vomiting, diarrhea SKIN: Denies rash or itching. MUSCULOSKELETAL: Denies myalgia. NEUROLOGIC: Denies headache. All systems reviewed & are unremarkable except as noted in HPI and below PMFSH Past Medical History Medical History (Updated 02/04/24 @ 09:38 by Gayle Sinclair NP) Fracture of right elbow History of dental problems Surgical History Surgical History (Updated 08/01/22 @ 07:49 by Gayle Sinclair NP) H/O tubal ligation Family History Family History Other Diabetes mellitus Social History Social History (Updated 02/04/24 @ 09:53 by Gayle Sinclair NP) Smoking packs per day: 0.5 Smoking cigarettes per day: 10.0 Years smoked: 23 Smoking pack-years: 11.50 Smoking status: Current every day smoker Tobacco type: cigarettes Alcohol intake: current Alcohol use details: social Substance use type: does not use Living arrangements: with family Gender identity (if verbalized by the patient): Female Comments At time of signature, agree with nursing past medical, surgical, social and family history. There is no relevant family history pertinent to the presenting complaint Exam Narrative: GENERAL: Well-appearing, well-nourished, and in no acute distress. HEAD: Normocephalic EYES: PERRLA, conjunctivae clear ENT: Nares clear, turbinates edematous and erythematous, clear discharge. Mucous membranes moist.See procedure note, once ears cleansed TM pearly millard with dull light reflex bilaterally; no tragal tenderness. Oropharynx erythematous without lesions. Tonsils not enlarged and without exudate, no drooling, no hoarseness, no trismus, uvula midline.poor dentition NECK: Supple. No lymphadenopathy CHEST: Clear to auscultation, breath sounds equal. No wheezing, rhonchi, rales, or stridor. No respiratory distress, speaks in full sentences.dry cough noted SAO2 100% on room air HEART: Regular rate and rhythm. No murmur heard. SKIN: Warm, dry, no rash. NEURO: Alert and oriented x3. PSYCH: Normal mood and affect Course Course Emergency Course: Patient is aware of diagnosis, understands and agrees to treatment plan.? Anticipatory guidance given.? Patient agrees to follow-up as directed and is aware of reasons to seek care at the emergency department. Portions of this record may have been created with voice recognition software Level of Care: Express Care Visit Vital S
== END 2024-02-04 09:44 | disposition home or self-care (01) ==
PROVIDERS: Emergency Provider Registered Nurse
DX: H61.23 Impacted cerumen, bilateral (principal); F17.210 Nicotine dependence, cigarettes, uncomplicated
CPT/HCPCS: 69209; 99213; A9270; G0463

== ENCOUNTER 2024-11-29 11:43 | Emergency (ER) | payer SELFPAY ==
[2024-11-29 11:48] VITALS: BP 120/78; PULSE 73; RESP 16; TEMP 36.6; O2SAT 99
--- NOTE | 2024-11-29 11:59 | ED.GENADULT ---
HPI - General Adult General Chief complaint: Upper Respiratory Infection Stated complaint: sinus/chest congestion Time Seen by Provider: 11/29/24 11:59 Source: patient, RN notes reviewed and old records reviewed Mode of arrival: ambulatory Limitations: no limitations History of Present Illness HPI narrative: 39-year-old female presents to the [facility] with complaints of sinus congestion, cough. Symptoms started as what she thought was allergies over 2 weeks ago. Patient was taking allergy medication, has developed into cough and chest congestion. Denies any fevers, chest pain or shortness of breath. Patient is a smoker Related Data Allergies Allergy/AdvReac Type Severity Reaction Status Date / Time No Known Allergies Allergy Verified 11/29/24 12:15 Review of Systems Review of Systems: All systems reviewed & are unremarkable except as noted in HPI and below Constitutional: Constitutional: Reports no additional constitutional complaints ENT: Reports as per HPI Cardiovascular: Cardiovascular: Reports no additional cardiovascular complaints, Denies chest pain and Denies dyspnea Respiratory: Respiratory: Reports as per HPI, Denies chest congestion, Reports cough and Denies dyspnea Musculoskeletal: Musculoskeletal: Reports no additional musculoskeletal complaints Integumentary/Breasts: Skin/Breast: Reports system reviewed and no additional complaints, except as docu PMFSH Past Medical History Medical History Fracture of right elbow History of dental problems Surgical History Surgical History H/O tubal ligation Family History Family History Other Diabetes mellitus Social History Social History Smoking packs per day: 0.5 Smoking cigarettes per day: 10.0 Years smoked: 23 Smoking pack-years: 11.50 Smoking status: Current every day smoker Tobacco type: cigarettes Alcohol intake: current Alcohol use details: social Substance use type: does not use Living arrangements: with family Gender identity (if verbalized by the patient): Female Comments At the time of my signature, I reviewed and agree with the nursing past medical, surgical, social, and family history. There is no relevant family history pertinent to the patient complaint. Exam Const: General: cooperative, healthy appearing, comfortable, no acute distress, well developed, alert and well nourished Nutritional Appearance: well nourished Orientation/consciousness: patient oriented x3 Limitations: no limitations HENMT: Head: normal to inspection Ears: hearing grossly normal bilaterally, external ears normal, TM's normal bilaterally, EAC's normal, mastoids normal and no periauricular adenopathy Mouth: Yes Normal oral and palatal mucosa present, Yes lip normal, Yes tongue normal and Yes moist mucous membranes Throat: posterior oropharynx normal, uvula midline and no uvular edema Eyes: General: appearance normal, both eyes and all related structures Alignment and Position: alignment normal Neck: Neck: normal visual inspection, full ROM, no lymphadenopathy and no meningeal signs Chest: Chest palpation & inspection: normal inspection of the chest Resp: Effort & Inspection: normal respiratory effort and able to speak in complete sentences Auscultation: no crackles, no rales, no rhonchi and wheezes expiratory wheezes and left upper Cardio: Rate: regular rate Skin: General skin exam: normal color and no rashes or lesions noted Neuro: General: patient oriented x3, gait normal, moves all extremities and no meningeal signs Cognition (Neuro): normal cognition Speech: normal speech Gait exam (Neuro): Normal gait present Extrem: General: normal to inspection, full ROM, capillary refill normal and normal gait Psych: Appearance: grossly normal and well kempt Mental Status: mental status grossly normal Speech and movement: Normal speech and movement present and Clear speech present Affect: normal affect Attitude: cooperative Course Course Level of Care: Express Care Visit Vital Signs Vital signs: Vital Signs Temperature 98 F 11/29/24 11:48 Pulse Rate 73 11/29/24 11:48 Respiratory Rate 16 11/29/24 11:48 Blood Pressure 120/78 11/29/24 11:48 Pulse Oximetry 99 11/29/24 11:48 Oxygen Delivery Room Air 11/29/24 11:48 Temperature 98 F 11/29/24 11:48 Pulse Rate 73 11/29/24 11:48 Respiratory Rate 16 11/29/24 11:48 Blood Pressure 120/78 11/29/24 11:48 Pulse Oximetry 99 11/29/24 11:48 Oxygen Delivery Room Air 11/29/24 11:48 Reviewed Medical Decision Making MDM Narrative Medical decision making narrative: Patient sitting comfortably in exam room. Nontoxic, vitals stable. Patient in no acute distress Patient presents for upper respiratory infection for over 2 weeks. Patient appropriate for outpatient treatment and follow-up. Discussed that antibiotics may not work due to if this is a viral infection. Patient verbalized understanding. Discharge instructions reviewed with patient, as well as provided in writing per nursing staff. The instructions also include specific and strict return/GO TO THE ER as well as f/u information. All questions have been answered, and the patient deny any further questions with discharge and discharge plan. Some parts of this dictation were generated by voice recognition software and may contain typographical and/or grammatical inaccuracies. Differential Diagnosis Differential Diagnosis: Sinusitis, bronchitis , URI Medical Records Medical records reviewed: Yes I reviewed the external patient's medical records. Vital Signs Vital Signs: Vital Signs Temperature 98 F 11/29/24 11:48 Pulse Rate 73 11/29/24 11:48 Respiratory Rate 16 11/29/24 11:48 Blood Pressure 120/78 11/29/24 11:48 Pulse Oximetry 99 11/29/24 11:48 Oxygen Delivery Room Air 11/29/24 11:48 Temperature 98 F 11/29/24 11:48 Pulse Rate 73 11/29/24 11:48 Respiratory Rate 16 11/29/24 11:48 Blood Pressure 120/78 11/29/24 11:48 Pulse Oximetry 99 11/29/24 11:48 Oxygen Delivery Room Air 11/29/24 11:48 Reviewed Lab Data Lab results reviewed: Yes I reviewed the patient's lab results. Labs: Reviewed Critical Care Time Critical Care Time Critical Care Time: No Discharge Plan Discharge Clinical Impression: Bronchitis, Sinusitis Patient Disposition: Home, Self-Care Condition: Stable Instructions: Antibiotic Form, How to Stop Smoking (ED), Acute Bronchitis (ED) Additional Instructions: be sure to take 10 deep breaths per hour while awake. It is very important to treat your symptoms. Drink plenty of water, Gatorade, Pedialyte, ice pops or Jell-O. -Alternate Tylenol and Motrin per package directions for fever or pain. You can alternate every 4 hours -Antihistamine medication such as Zyrtec/Claritin/Ana during the day can help improve symptoms. -doing daily nasal irrigations can help relieve pressure your sinuses. Things like a Neti pot -Use Flonase twice a day for 5 days then daily to help reduce the inflammation and dry up your sinuses. -You can also use Mucinex. Be sure to drink plenty of water with this medication at least 8 ounces with every dose and it is important to drink 8 to 10 glasses of water per day. Water is a natural decongestant -Eat and drink things that are easy to swallow, like tea or soup, or popsicles. -Oral rinses such as: Salt water gargles and/or may use topical anesthetic (eg. Chloraseptic spray) or lozenges to relieve dryness or throat pain). -Frequent hand washing or hand assessment analyst is one of the best ways to prevent spread of infection. -Using a vaporizer or humidifier at night will also help thin secretions and help with coughing up phlegm. -Follow up with primary care provider in 7-10 days if condition is not improving - For new or worsening symptoms go directly to the nearest ER Patient Language: Montserratian Prescriptions: New doxycycline monohydrate 100 mg tablet 100 mg PO BID Qty: 14 0RF albuterol sulfate 90 mcg/actuation HFA aerosol inhaler 2 puff inhalation QID PRN (Reason: shortness of breath or wheezing) Qty: 6.7 0RF (DME) Aerochamber MV Spacer See Rx Instructions .Route Qty: 1 0RF Rx Instructions: As directed Follow-up/Referrals: PHYSICIAN,VENEER STACKER [Primary Care Provider] - Stand Alone Forms: Work/School Release IP Time of Disposition: 12:38
== END 2024-11-29 12:42 | disposition home or self-care (01) ==
PROVIDERS: Emergency Provider Nurse Practitioner
DX: J40 Bronchitis, not specified as acute or chronic (principal); J32.9 Chronic sinusitis, unspecified; F17.210 Nicotine dependence, cigarettes, uncomplicated
CPT/HCPCS: 99213; G0463

== ENCOUNTER 2025-05-13 16:15 | Emergency (ER) | payer SELFPAY ==
--- OUTSIDE RECORDS SUMMARY | 2025-05-13 16:19 | XMS_ITS | Clinical Summary ---
Author Organization [facility] Address [address] [place] [address] Phone Care Team Providers Care Senior Data Modeler Name Role Phone Provider, None Primary Care Provider Unavailabl e Allergies No known active allergies Medications ibuprofen (MOTRIN) 600 MG Tablet Take 1 Tab by mouth every 6 hours as needed for up to 60 doses. 60 Tab 07/07/2017 Active HYDROcodone-leigh ann taminophen (NORCO) 5-325 MG TabletIndicatio ns:Contusion of wrist Take 1 Tablet by mouth every 4 hours as needed for Moderate or more severe pain. 15 Tablet 05/23/2021 Active Active Problems Problem Noted Date Diagnosed Date Major depressive disorder, recurrent episode, mo derate 10/26/2015 Family History Medical History Relation Name Comments Diabetes Mother Relation Name Status Comments Father Alive Maternal Grandfather Maternal Grandmother Mother Alive Paternal Grandfather Paternal Grandmother Social History Tobacco Use Types Packs/Day Years Used Date Smoking Tobacco: Heavy Smoker Cigarettes 0.5 16 Smokeless Tobacco: Never Tobacco Cessation:Ready to Q uit: No Alcohol Use Standard Drinks/Week Comments Yes 0 (1 standard drink = 0.6 oz pure alcohol) Occasionally once or twice a year. Sexually Active Control Partners Comments Not Currently Male Comments No Sex and Gender Information Value Date Recorded Sex Assigned at Not on file Legal Sex Female 12:11 AM CDT Gender Identity Not on file Sexual Orientation Not on file Last Filed Vital Signs Vital Sign Reading Time Taken Comments Blood Pressure 109/58 12/10/2024 8:06 PM CDT Pulse 79 12/10/2024 8:06 PM CDT Temperature 36.5 C (97.7 F) 12/10/2024 8:06 PM CDT Respiratory Rate 18 12/10/2024 8:06 PM CDT Oxygen Saturation 99% 12/10/2024 8:06 PM CDT Inhaled Oxygen Concentration - - Weight 66.7 kg (147 lb) 12/10/2024 8:06 PM CDT Height 154.9 cm (5' 1) 12/10/2024 8:06 PM CDT Body Mass Index 27.78 12/10/2024 8:06 PM CDT Plan of Treatment Health Maintenance Due Date Last Done Comments Hepatitis C Virus (HCV) Screening 1985 Hepatitis B Immunization (1 of 3 - 19+ 3-dose series) 2004 Pap Smear 2006 Human Papillomavirus (HPV) Immunization (1 - 3-dose SCDM series) 2012 Cervical Cancer Screening (CCS) 2015 HPV/Cotest 2015 SARS-COV-2 Immunization ( season) 2024 09/02/2021, 08/12/2021 Influenza Immunization (#1) 2025 Respiratory Syncytial Virus (RSV) Immunization (Adult) (1 - 1-dose 75+ series) 2060 DTaP/Tdap/Td Immunization Discontinued 04/01/2015 TdaP Immunization Completed 04/01/2015 Meningococcal Immunization (ACWY) Aged Out No longer eligible based on patient's age to complete this topic Pneumococcal Immunization Combined Aged Out No longer eligible based on patient's age to complete this topic Rotavirus Immunization Aged Out No lo nger eligible based on patient's age to complete this topic Insurance MEDICAID [facility] Care Teams Senior Data Modeler Relationship Specialty Start Date End Date Provider, None [place] PCP - General 07/05/18
[2025-05-13 16:23] VITALS: BP 109/68; PULSE 113; RESP 16; TEMP 36.6; O2SAT 98
--- NOTE | 2025-05-13 16:31 | ED.HA ---
HPI - Headache General Chief Complaint: Headache Stated Complaint: head pain Time Seen by Provider: 05/13/25 16:31 Source: patient Mode of arrival: ambulatory Limitations: no limitations History of Present Illness HPI Narrative: 39 y/o female presented for c/o headache. Onset yesterday. Says it kept her from sleeping in the night and she had to miss work. Endorses nausea today. States she has chronic allergy symptoms and therefore has head pressure often but this is worse. Has not been taking antihistamine or nasal spray. Took Tylenol and motrin. Denies vomiting, or fever. Related Data Allergies Allergy/AdvReac Type Severity Reaction Status Date / Time No Known Allergies Allergy Verified 11/29/24 12:15 Review of Systems Review of Systems: CONSTITUTIONAL: Denies body aches, fever, chills, or sweats. EYES: Denies visual changes, redness, or discharge. ENT: reports rhinorrhea, congestion, denies sore throat, or otalgia. CARDIOVASCULAR: Denies chest pain, palpitations, or edema. RESPIRATORY: Denies cough or dyspnea. GASTROINTESTINAL: Denies abdominal pain, nausea, vomiting, or diarrhea. SKIN: Denies rash MUSCULOSKELETAL: Denies back pain, joint pain, or myalgia. NEUROLOGIC: reports headache, denies numbness, tingling, or weakness. All systems reviewed & are unremarkable except as noted in HPI and below PMFSH Past Medical History Medical History Fracture of right elbow History of dental problems Surgical History Surgical History H/O tubal ligation Family History Family History Other Diabetes mellitus Social History Social History Smoking packs per day: 0.5 Smoking cigarettes per day: 10.0 Years smoked: 23 Smoking pack-years: 11.50 Smoking status: Current every day smoker Tobacco type: cigarettes Alcohol intake: current Alcohol use details: social Substance use type: does not use Living arrangements: with family Gender identity (if verbalized by the patient): Female Comments At time of signature, I have reviewed and agree with nursing past medical, surgical, social and family history unless otherwise noted. Please see nursing chart for further information. There is no relevant family history pertinent to the presenting complaint Exam Narrative: GENERAL: Well-appearing, and in no acute distress. HEAD: Normocephalic, atraumatic. EYES: EOMI. No redness or drainage. Conjunctivae normal. ENT: Mucous membranes pink and moist. No rhinorrhea. TMs normal bilaterally. Throat normal. Uvula midline. NECK: Normal AROM. Supple. No lymphadenopathy. CHEST: Clear to auscultation. HEART: Regular rate and rhythm. No murmur appreciated. Normal peripheral pulses. SKIN: Warm, dry, no rash. Capillary refill normal. Normal skin turgor. NEURO: No focal deficits. Alert and oriented x3. Gait steady. PSYCH: Normal affect. Course Course Emergency Course: Patient is aware of diagnosis, understands and agrees to treatment plan. Anticipatory guidance given. Patient agrees to follow-up as directed and is aware of reasons to seek care at the emergency department. Portions of this record may have been created with voice recognition software Level of Care: Express Care Visit Vital Signs Vital signs: Vital Signs Temperature 97.8 F 05/13/25 16:23 Pulse Rate 113 H 05/13/25 16:23 Respiratory Rate 16 05/13/25 16:23 Blood Pressure 109/68 05/13/25 16:23 Pulse Oximetry 98 05/13/25 16:23 Oxygen Delivery Room Air 05/13/25 16:23 Temperature 97.8 F 05/13/25 16:23 Pulse Rate 113 H 05/13/25 16:23 Respiratory Rate 16 05/13/25 16:23 Blood Pressure 109/68 05/13/25 16:23 Pulse Oximetry 98 05/13/25 16:23 Oxygen Delivery Room Air 05/13/25 16:23 MDM - Headache MDM Narrative Medical decision making narrative: Discussed physical exam findings; shared decision making pt states she needs a work note and would appreciate Rx flonase. Declines abx or NSAID rx. Advised supportive measures and signs/symptoms to go to the ER. Pt is appropriate for outpt treatment and f/u. Differential Diagnosis Differential diagnosis: Likely migraine, tension headache, headache and sinusitis Discharge Plan Discharge Clinical Impression: Headache Patient Disposition: Home Condition: Stable Instructions: Antibiotic Form, Acute Headache (ED) Additional Instructions: Rest in a cool dark room Avoid screens (computers, tablets, phones, television) Drink plenty fluids. Tylenol And Motrin every 8 hours as needed recommend antihistamine such as Zyrtec or Claritin along with Flonase spray Follow up with your primary care provider in 1 week Go to the ER for worsening symptoms or concerns Patient Language: Nauruan Prescriptions: New fluticasone propionate [Flonase Allergy Relief] 50 mcg/actuation spray,suspension 2 spray intranasal DAILY PRN (Reason: allergy symptoms) Qty: 16 0RF Rx Instructions: administer into each nostril No Action (DME) Aerochamber MV Spacer See Rx Instructions .Route Qty: 1 0RF Rx Instructions: As directed Follow-up/Referrals: PHYSICIAN,WELD ENGINEER [Primary Care Provider] - Stand Alone Forms: Work/School Release IP
== END 2025-05-13 16:45 | disposition home or self-care (01) ==
PROVIDERS: Emergency Provider Nurse Practitioner Family
DX: R51.9 Headache, unspecified (principal); F17.210 Nicotine dependence, cigarettes, uncomplicated
CPT/HCPCS: 99213; G0463

== ENCOUNTER 2025-06-13 17:38 | Emergency (ER) | payer SELFPAY ==
[2025-06-13 17:41] VITALS: BP 138/92; PULSE 81; RESP 18; TEMP 36.6; O2SAT 99
--- OUTSIDE RECORDS SUMMARY | 2025-06-13 17:41 | XMS_ITS | Clinical Summary ---
Author Organization [facility] Address [address] [place] [address] Phone Care Team Providers Care Customs And Border Protection Inspector Name Role Phone Provider, None Primary Care [...] Cervical Cancer Screening (CCS) 2015 HPV/Cotest 2015 Influenza Immunization (#1) 2025 SARS-COV-2 Immunization (3 season) 2025 09/02/2021, 08/12/2021 Respiratory Syncytial Virus (RSV) Immunization (Adult) (1 [...] to complete this topic Insurance MEDICAID [facility] Care Teams Customs And Border Protection Inspector Relationship Specialty Start Date End Date Provider, None [place] PCP - General 07/05/18
--- NOTE | 2025-06-13 17:53 | ED_ITS ---
HPI - Headache General Chief Complaint: Headache Stated Complaint: work note Time Seen by Provider: 06/13/25 17:54 Source: patient Mode of arrival: ambulatory Limitations: no limitations History of Present Illness HPI Narrative: 39 y/o female presented for c/o headache. Onset yesterday. Says it kept her from sleeping in the night and she had to miss work today. Headache pain is better, Endorses associated nausea which has also resolved. States she has chronic allergy symptoms and therefore has head pressure often but this is worse. This is the second headache since May, and she plans to establish with a pcp to address the new headaches. Has not been taking antihistamine or nasal spray. Took Tylenol and motrin. Denies vomiting or fever. Related Data Home Medications ?Medication ?Instructions ?Recorded ?Confirmed ?Last Taken ?Type No Home Medications 06/13/25 06/13/25 U nknown History Allergies Allergy/AdvReac Type Severity Reaction Status Date / Time No Known Allergies Allergy Verified 06/13/25 17:46 Review of Systems Review of Systems: CONSTITUTIONAL: Denies body aches, fever, chills, or sweats. EYES: Denies visual changes, redness, or discharge. ENT: Denies rhinorrhea, congestion, sore throat, or otalgia. CARDIOVASCULAR: Denies chest pain, palpitations, or edema. RESPIRATORY: Denies cough or dyspnea. NEUROLOGIC: reports headache, Denies numbness, tingling, or weakness. PSYCH: Denies depression or anxiety. All systems reviewed & are unremarkable except as noted in HPI and below PMFSH Past Medical History Medical History Fracture of right elbow History of dental problems Surgical History Surgical History H/O tubal ligation Family History Family History Other Diabetes mellitus Social History Social History Smoking packs per day: 0.5 Smoking cigarettes per day: 10.0 Years smoked: 23 Smoking pack-years: 11.50 Smoking status: Current every day smoker Tobacco type: cigarettes Alcohol intake: current Alcohol use details: social Substance use type: does not use Living arrangements: with family Gender identity (if verbalized by the patient): Female Comments At time of signature, I have reviewed and agree with nursing past medical, surgical, social and family history unless otherwise noted. Please see nursing chart for further information. There is no relevant family history pertinent to the presenting complaint Exam Narrative: GENERAL: Well-appearing HEAD: Normocephalic, atraumatic. EYES: EOMI. No redness or drainage. Conjunctivae normal. ENT: Mucous membranes pink and moist. No rhinorrhea. TMs normal bilaterally. Throat normal. Uvula midline. CHEST: No respiratory distress. Clear to auscultation. HEART: Regular rate and rhythm. No murmur appreciated. Normal peripheral pulses. SKIN: Warm, dry, scattered abrasions to legs. Capillary refill normal. Normal skin turgor. NEURO: No focal deficits. Alert and oriented x3. Gait steady. PSYCH: Normal affect. Course Course Emergency Course: Patient is aware of diagnosis, understands and agrees to treatment plan. Anticipatory guidance given. Patient agrees to follow-up as directed and is aware of reasons to seek care at the emergency department. Portions of this record may have been created with voice recognition software Level of Care: Express Care Visit Vital Signs Vital signs: Vital Signs Temperature 98 F 06/13/25 17:41 Pulse Rate 81 06/13/25 17:41 Respiratory Rate 18 06/13/25 17:41 Blood Pressure 138/92 H 06/13/25 17:41 Pulse Oximetry 99 06/13/25 17:41 Oxygen Delivery Room Air 06/13/25 17:41 Temperature 98 F 06/13/25 17:41 Pulse Rate 81 06/13/25 17:41 Respiratory Rate 18 06/13/25 17:41 Blood Pressure 138/92 H 06/13/25 17:41 Pulse Oximetry 99 06/13/25 17:41 Oxygen Delivery Room Air 06/13/25 17:41 MDM - Headache MDM Narrative Medical decision making narrative: Discussed physical exam findings. Advised supportive measures and signs/symptoms to go to the ER. Pt is appropriate for outpt treatment and f/u. Differential Diagnosis Differential diagnosis: Likely migraine, tension headache, headache and sinusitis Discharge Plan Discharge Clinical Impression: Headache Patient Disposition: Home Condition: Stable Instructions: Antibiotic Form, Acute Headache (ED) Additional Instructions: Rest in a cool dark room Avoid screens (computers, tablets, phones, television) Drink plenty fluids. Try to reduce stress/triggers Tylenol 1000mg every 8 hours as needed Establish and Follow up with a primary care provider in 1 week Go to the ER for worsening symptoms or concerns Patient Language: Yi Prescriptions: No Action No Home Medications Follow-up/Referrals: PHYSICIAN,CLINICAL INFORMATICS SPEC [Primary Care Provider, Internal Medicine] Stand Alone Forms: Work/School Release IP Time of Disposition: 18:01
== END 2025-06-13 18:13 | disposition home or self-care (01) ==
PROVIDERS: Emergency Provider Nurse Practitioner Family
DX: R51.9 Headache, unspecified (principal); F17.210 Nicotine dependence, cigarettes, uncomplicated
CPT/HCPCS: 99213; G0463